=== PATIENT | female | born 1970 | race Two or more races ===

== ENCOUNTER 2022-04-26 19:52 | Emergency (ER) | payer OTHER ==
[~2022-04-26] VITALS: Ht 160 cm; Wt 129.3 kg
[2022-04-26] MEDS ORDERED: ACETAMINOPHEN 325 MG TABLET PO ONE (20:15)
[2022-04-26] MEDS ORDERED: LIDOCAINE 5% PATCH TD ONE ×2 (20:15→20:31)
[2022-04-26] MEDS ORDERED: ACETAMINOPHEN 325 MG TABLET ONE (20:31)
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
--- NOTE | 2022-04-26 23:50 | NUR ---
Patient discharged to home in stable condition. Written and verbal after care instructions given. Patient verbalizes understanding of instructions. Stressed follow up or return to ER for worsening s/s.
[2022-04-26 23:56] VITALS: BP 131/84
== END 2022-04-26 23:50 | disposition home or self-care (01) ==
LOC: ER 20:20
DX: M54.2 Cervicalgia (principal); R51.9 Headache, unspecified; M54.50 Low back pain, unspecified; V89.2XXA Person injured in unspecified motor-vehicle accident, traffic, initial encounter; Y92.410 Unspecified street and highway as the place of occurrence of the external cause
CPT/HCPCS: 70450; 72100; 72125; A4663